=== PATIENT | male | born 1990 | race Caucasian/White ===

== ENCOUNTER 2018-07-24 20:14 | Emergency (ER) | payer SELFPAY ==
[~2018-07-24] VITALS: Ht 175.3 cm; Wt 70.1 kg
[~2018-07-24 20:14] MED LIST: IBUP-1561 PO
[2018-07-24 20:15] VITALS: BP 119/67; PULSE 59; RESP 19; Ht 175.3 cm; Wt 70.1 kg
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
[2018-07-30] MEDS ORDERED: IBUP-1542 PO (11:26)
== END 2018-07-24 23:47 | disposition left against medical advice (07) ==
LOC: FTE 20:14
DX: S99.922A Unspecified injury of left foot, initial encounter (principal); Y03.0XXA Assault by being hit or run over by motor vehicle, initial encounter
CPT/HCPCS: 99282

== ENCOUNTER 2018-12-01 22:11 | Emergency (ER) | payer OTHER ==
[~2018-12-01] VITALS: Ht 162.6 cm; Wt 68.1 kg
[~2018-12-01 22:11] MED LIST changes: +IBUP-1542 PO
[2018-12-01 22:18] VITALS: Ht 162.6 cm; Wt 68.1 kg
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
[2018-12-01] MEDS ORDERED: KETOROLAC 30 MG INJ IM STA (22:39)
[2018-12-02 00:25] VITALS: BP 125/72; PULSE 82; RESP 20
== END 2018-12-02 02:32 | disposition home or self-care (01) ==
LOC: E/R 22:11
DX: F10.10 Alcohol abuse, uncomplicated (principal)
CPT/HCPCS: 36415; 80053; 80307; 81003; 83690; 85025; 96372; 99284; J1885

== ENCOUNTER 2019-01-19 18:55 | Inpatient (IN) | payer MEDICAID, OTHER ==
[~2019-01-19] VITALS: Ht 167.6 cm; Wt 70.0 kg
[~2019-01-19 18:55] MED LIST changes: +DOCU-144 PO; +HYDR-3980 PO; +NALO4SPR NS; +OXYC-279 PO
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
[2019-01-19] MEDS ORDERED: ONDANSETRON 4 MG INJ IV ONE (19:30)
[2019-01-19] MEDS ORDERED: morphine 4 MG/ML VIAL IV ONE (19:30)
[2019-01-19] MEDS ORDERED: morphine 4 MG/ML VIAL IV STA (19:55)
[2019-01-19] MEDS ORDERED: HYDROmorphONE 0.5 MG/0.5 ML SYG IV STA ×2 (20:37→21:52)
[2019-01-19] MEDS ORDERED: ONDANSETRON 4 MG INJ IV STA (21:31)
[2019-01-19] MEDS ORDERED: KETAMINE HCL (50 MG/ML) 1ml syringe IV STA (21:31)
[2019-01-20] MEDS ORDERED: HYDROmorphONE 0.5 MG/0.5 ML SYG IV STA (00:28)
[2019-01-20] MEDS ORDERED: ONDANSETRON 4 MG INJ IV PRN (00:30)
[2019-01-20] MEDS ORDERED: ACETAMINOPHEN 325 MG TAB PO PRN ×2 (00:30→02:30)
[2019-01-20 02:00] VITALS: Ht 167.6 cm; Wt 70.0 kg
[2019-01-20] MEDS: morphine 2 MG INJ IV PRN ×2 (02:25→06:25)
[2019-01-20] MEDS ORDERED: HYDROCODONE/APAP (5/325) TAB PO PRN (02:30)
[2019-01-20] MEDS ORDERED: NACL 0.9% 3 ML SYG IV SCH (02:30)
[2019-01-20 02:34] VITALS: BP 134/80; PULSE 80; RESP 20
[2019-01-20] MEDS: HYDROCODONE/APAP (5/325) TAB PO PRN ×2 (03:22→09:33)
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
[2019-01-20] MEDS ORDERED: HYDROmorphONE 2 MG/ML SYG IV ONE (07:30)
[2019-01-20 08:09] VITALS: BP 125/80; PULSE 62; RESP 18
[2019-01-20] MEDS: ONDANSETRON 4 MG INJ IV PRN ×2 (08:41→15:11)
[2019-01-20] MEDS: HEPARIN 5,000 UNIT/1 ML VIAL SC SCH ×2 (09:34→20:27)
[2019-01-20] MEDS ORDERED: PROCHLORPERAZINE 5 MG TAB PO PRN (11:00)
[2019-01-20] MEDS: HYDROmorphONE 1 MG/ML SYG IV PRN ×3 (11:01→19:05)
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
[2019-01-20] MEDS: METHOCARBAMOL 500 MG TAB PO SCH ×2 (12:34→20:13)
--- NOTE | 2019-01-20 13:11 | PN ---
Date/Time of Note Date/Time of Note DATE: 01/20/19 TIME: 13:06 Assessment/Plan VTE Prophylaxis Risk score (from Ns)>0 risk: 2 SCD applied (from Ns): Yes Pharmacological prophylaxis: heparin Lines/Catheters IV [facility] Saline Lock Assessment/Plan Hospital Course Assessment and plan 1. Recent fall with left talus fracture. Patient seen by customer account executive. Tentative plan for surgical intervention on January 21, 2019 2. [address] intoxication. Will place on banana bag. On Librium taper. Ativan as needed for possible seizure. 3. Possible substance abuse: Cannabinoids/suspect opioids Cessation was advised Disposition plan. Continue with analgesics. Plan for surgical intervention for left Talus fracture. Discussed POC with Dr. Sloan Result Diagram: 01/20/19 0559 01/20/19 0559 Results 24hrs Laboratory Tests Test 01/19/19 19:10 01/19/19 21:53 01/20/19 05:59 White Blood Count 7.9 7.4 Red Blood Count 4.62 L 4.56 L Hemoglobin 14.2 13.9 L Hematocrit 40.3 L 41.2 L Mean Corpuscular Volume 87.2 90.4 Mean Corpuscular Hemoglobin 30.7 30.5 Mean Corpuscular Hemoglobin Concent 35.2 33.7 Red Cell Distribution Width 11.9 12.3 Platelet Count 202 190 Mean Platelet Volume 9.9 10.6 H Immature Granulocytes % 0.400 0.400 Neutrophils % 73.2 69.8 Lymphocytes % 18.8 18.4 Monocytes % 6.2 10.6 Eosinophils % 0.8 0.4 Basophils % 0.6 0.4 Nucleated Red Blood Cells % 0.0 0.0 Immature Granulocytes # 0.030 0.030 Neutrophils # 5.8 5.2 Lymphocytes # 1.5 1.4 Monocytes # 0.5 0.8 Eosinophils # 0.1 0.0 Basophils # 0.1 0.0 Nucleated Red Blood Cells # 0.0 0.0 Prothrombin Time 11.9 Prothrombin Time Ratio 0.9 INR International Normalized Ratio 0.87 Activated Partial Thromboplast Time 25.5 Sodium Level 142 140 Potassium Level 3.5 4.4 Chloride Level 105 105 Carbon Dioxide Level 25 28 Anion Gap 12 7 Blood Urea Nitrogen 10 9 Creatinine 1.01 0.94 Est Glomerular Filtrat Rate mL/min > 60 > 60 Glucose Level 91 92 Calcium Level 9.4 9.4 Ethyl Alcohol Level 77.0 H Urine Opiates Screen Positive Urine Barbiturates Negative Urine Amphetamines Screen Negative Urine Benzodiazepines Screen Negative Urine Cocaine Screen Negative Urine Cannabinoids Positive Phosphorus Level 4.7 Magnesium Level 2.1 Total Bilirubin 1.3 Direct Bilirubin 0.00 Indirect Bilirubin 1.3 H Aspartate Amino Transf (AST/SGOT) 32 Alanine Aminotransferase (ALT/SGPT) 39 Alkaline Phosphatase 72 Total Protein 7.3 Albumin 4.4 Globulin 2.90 Albumin/Globulin Ratio 1.51 Subjective 24 Hr Interval Summary Free Text/Dictation Patient reports pain on LLE. was seen together with customer account executive. denies any headache. With reported nausea/vomiting Exam/Review of Systems Exam Vitals Vital Signs Date Temp Pulse Resp B/P (MAP) Pulse Ox O2 O2 Flow FiO2 Time Delivery Rate 01/20/19 98.8 62 18 125/80 96 Room Air 08:09 (95) 01/19/19 2.0 22:08 Intake and Output 01/19/19 01/19/19 01/20/19 1515:00 23:00 07:00 IntakeIntake Total 450 ml OutputOutput Total 700 ml BalanceBalance -250 ml Constitutional: alert, oriented Psych: nl mood/affect Respiratory: clear to auscultation, normal air movement Cardiovascular: other (regular rate to tachycardic ) Gastrointestinal: soft, non-tender Musculoskeletal: swelling (LLE. pain on palpation ) Neurological: nl mental status, nl speech Skin: nl turgor Results Results 24hrs Laboratory Tests Test 01/19/19 19:10 01/19/19 21:53 01/20/19 05:59 White Blood Count 7.9 7.4 Red Blood Count 4.62 L 4.56 L Hemoglobin 14.2 13.9 L Hematocrit 40.3 L 41.2 L Mean Corpuscular Volume 87.2 90.4 Mean Corpuscular Hemoglobin 30.7 30.5 Mean Corpuscular Hemoglobin Concent 35.2 33.7 Red Cell Distribution Width 11.9 12.3 Platelet Count 202 190 Mean Platelet Volume 9.9 10.6 H Immature Granulocytes % 0.400 0.400 Neutrophils % 73.2 69.8 Lymphocytes % 18.8 18.4 Monocytes % 6.2 10.6 Eosinophils % 0.8 0.4 Basophils % 0.6 0.4 Nucleated Red Blood Cells % 0.0 0.0 Immature Granulocytes # 0.030 0.030 Neutrophils # 5.8 5.2 Lymphocytes # 1.5 1.4 Monocytes # 0.5 0.8 Eosinophils # 0.1 0.0 Basophils # 0.1 0.0 Nucleated Red Blood Cells # 0.0 0.0 Prothrombin Time 11.9 Prothrombin Time Ratio 0.9 INR International Normalized Ratio 0.87 Activated Partial Thromboplast Time 25.5 Sodium Level 142 140 Potassium Level 3.5 4.4 Chloride Level 105 105 Carbon Dioxide Level 25 28 Anion Gap 12 7 Blood Urea Nitrogen 10 9 Creatinine 1.01 0.94 Est Glomerular Filtrat Rate mL/min > 60 > 60 Glucose Level 91 92 Calcium Level 9.4 9.4 Ethyl Alcohol Level 77.0 H Urine Opiates Screen Positive Urine Barbiturates Negative Urine Amphetamines Screen Negative Urine Benzodiazepines Screen Negative Urine Cocaine Screen Negative Urine Cannabinoids Positive Phosphorus Level 4.7 Magnesium Level 2.1 Total Bilirubin 1.3 Direct Bilirubin 0.00 Indirect Bilirubin 1.3 H Aspartate Amino Transf (AST/SGOT) 32 Alanine Aminotransferase (ALT/SGPT) 39 Alkaline Phosphatase 72 Total Protein 7.3 Albumin 4.4 Globulin 2.90 Albumin/Globulin Ratio 1.51 Medications Medication Current Medications IV Flush (NS 3 ml) 3 ml PER PROTOCOL IV ; Start 01/20/19 at 02:30 Ondansetron HCl (Zofran Inj) 4 mg Q6H PRN IV NAUSEA/VOMITING Last administered on 01/20/19at 08:41; Admin Dose 4 MG; Start 01/20/19 at 02:30 Acetaminophen (Tylenol Tab) 650 mg Q6H PRN PO .PAIN 1-3 OR TEMP; Start 01/20/19 at 02:30 Hydromorphone HCl (Dilaudid) 1 mg Q4H PRN IV SEVERE PAIN LEVEL 7-10 Last administered on 01/20/19at 11:01; Admin Dose 1 MG; Start 01/20/19 at 07:00 Heparin Sodium (Porcine) (Heparin (5000 Units/1ml)) 5,000 unit BID SC Last administered on 01/20/19at 09:34; Admin Dose 5,000 UNIT; Start 01/20/19 at 09:00 Prochlorperazine (Compazine) 5 mg TID PRN PO nausea Last administered on 01/20/19at 11:02; Admin Dose 5 MG; Start 01/20/19 at 11:00 Methocarbamol (Robaxin) 500 mg TID PO Last administered on 01/20/19at 12:34; Admin Dose 500 MG; Start 01/20/19 at 13:00 Ketorolac Tromethamine (Toradol) 30 mg Q6H PRN IV PAIN LEVEL 1-3; Start 01/20/19 at 11:00; Stop 01/23/19 at 10:59 NIKKIE HUIZAR NP Jan 20, 2019 13:11
[2019-01-20] MEDS ORDERED: LORAZEPAM 2 MG INJ IV PRN (13:30)
[2019-01-20] MEDS: KETOROLAC 30 MG INJ IV PRN ×2 (13:34→21:01)
[2019-01-20 14:00] VITALS: BP 137/86; PULSE 60; RESP 18
[2019-01-20] MEDS: MULTIVITAMINS 10 ML, THIAMINE 100 MG, FOLIC ACID 1 MG in SOD CHLORIDE 0.9% 1,000 ML IVPB SCH (15:04)
[2019-01-20 20:08] VITALS: BP 129/83; PULSE 58; RESP 18
[2019-01-20] MEDS: CHLORDIAZEPOXIDE 25 MG CAP PO SCH (20:13)
[2019-01-21] VITALS (15 sets, daily range): BP systolic 112–136; BP diastolic 64–86; PULSE 60–74; RESP 9–19
[2019-01-21] MEDS: HYDROmorphONE 1 MG/ML SYG IV PRN ×4 (06:04→20:52)
[2019-01-21] MEDS: KETOROLAC 30 MG INJ IV PRN ×2 (06:52→18:52)
[2019-01-21] MEDS ORDERED: POLYMYXIN/BACITRACIN 1L IRRIG ONE (07:18)
--- NOTE | 2019-01-21 07:27 | HPN ---
Date/Time of Note Date/Time of Note DATE: 01/21/19 TIME: 07:27 Interval H&P Admission Note Pt. seen H&P reviewed: No system changes HEAVENLY CH DPM Jan 21, 2019 07:27
--- NOTE | 2019-01-21 07:39 | PREAC ---
Date/Time of Note Date/Time of Note DATE: 01/21/19 TIME: 07:37 Anesthesia Eval and Record Evaluation Time Pre-Procedure Interview DATE: 01/21/19 TIME: 07:37 Age 28 Sex male NPO: 8 hrs Preoperative diagnosis Lt ankle fracture Planned procedure Lt ankle ORIF Past Medical History Past Medical History: None Surgery & Anesthesia Issues No known issue Meds Anticoagulation: No Beta Fanny within 24 hr: No Reason Beta Fanny not given: Pt. not on B-Fanny Active Scripts Ibuprofen* (Motrin*) 600 Mg Tab, 600 MG PO Q6H PRN for PAIN AND/OR INFLAMMATION, #30 TAB Prov:DAVID FRANCIS MD 07/30/18 Ibuprofen* (Motrin*) 400 Mg Tab, 400 MG PO Q8, #15 TAB Prov:CLAY XIAO MD 07/24/18 Current Medications IV Flush (NS 3 ml) 3 ml PER PROTOCOL IV ; Start 01/20/19 at 02:30 Ondansetron HCl (Zofran Inj) 4 mg Q6H PRN IV NAUSEA/VOMITING Last administered on 01/20/19at 15:11; Admin Dose 4 MG; Start 01/20/19 at 02:30 Acetaminophen (Tylenol Tab) 650 mg Q6H PRN PO .PAIN 1-3 OR TEMP; Start 01/20/19 at 02:30 Hydromorphone HCl (Dilaudid) 1 mg Q4H PRN IV SEVERE PAIN LEVEL 7-10 Last administered on 01/21/19at 06:04; Admin Dose 1 MG; Start 01/20/19 at 07:00 Heparin Sodium (Porcine) (Heparin (5000 Units/1ml)) 5,000 unit BID SC Last administered on 01/20/19at 09:34; Admin Dose 5,000 UNIT; Start 01/20/19 at 09:00 Prochlorperazine (Compazine) 5 mg TID PRN PO nausea Last administered on 01/20/19at 11:02; Admin Dose 5 MG; Start 01/20/19 at 11:00 Methocarbamol (Robaxin) 500 mg TID PO Last administered on 01/20/19at 20:13; Admin Dose 500 MG; Start 01/20/19 at 13:00 Ketorolac Tromethamine (Toradol) 30 mg Q6H PRN IV PAIN LEVEL 1-3 Last administered on 01/21/19at 06:52; Admin Dose 30 MG; Start 01/20/19 at 11:00; Stop 01/23/19 at 10:59 Chlordiazepoxide (Librium) 50 mg TID PO Last administered on 01/20/19at 20:13; Admin Dose 50 MG; Start 01/20/19 at 21:00 Lorazepam (Ativan) 1 mg Q1H PRN IV ANXIETY; Start 01/20/19 at 13:30 Multivitamins 10 ml/Thiamine HCl 100 mg/Folic Acid 1 mg/Sodium Chloride 1,011.2 ml @ 125 mls/ hr DAILY@09 IVPB Last administered on 01/20/19at 15:04; Admin Dose 125 MLS/HR; Start 01/20/19 at 15:00 Meds reviewed: Yes Allergies Coded Allergies: Penicillins (Verified Allergy, Intermediate, UNKNOWN, 07/30/18) Allergies Reviewed: Yes Labs/Studies Labs Reviewed: Reviewed by anesthesiologist Result Diagram: 01/21/19 0433 01/21/19 0433 Laboratory Tests 01/21/19 04:33 test: N/A Studies: ECG Pre-procedure Exam Last vitals Vital Signs Date Temp Pulse Resp B/P (MAP) Pulse Ox O2 O2 Flow FiO2 Time Delivery Rate 01/21/19 98.5 60 18 126/79 99 02:05 (95) 01/20/19 Room Air 14:00 01/19/19 2.0 22:08 Airway: Adequate mouth opening, Adequate thyromental dist Mallampati: Mallampati II Teeth: Normal Lung: Normal Heart: Normal ASA Physical Status ASA physical status: 2 Emergency: E Planned Anesthetic General/MAC: LMA Planned Pain Management Single shot nerve block, Cont. Nerve Block, Parenteral pain med Pre-operative Attestations Prior to commencing anesthesia and surgery, the patient was re-evaluated, there was verification of: *The patient's identity *The results of appropriate recent lab work and preoperative vital signs *The above evaluation not changing prior to induction *Anesthetic plan, risk benefits, alternative and complications discussed with patient/family; questions answered; patient/family understands, accepts and wishes to proceed. CHANO ARGUETA MD Jan 21, 2019 07:39
[2019-01-21] MEDS ORDERED: MIDAZOLAM 1 MG/ML 2 ML INJ ONE (07:47)
[2019-01-21] MEDS ORDERED: ROPIVACAINE 0.5 % 30 ML VIAL ONE (08:01)
[2019-01-21] MEDS: HEPARIN 5,000 UNIT/1 ML VIAL SC SCH ×2 (09:00→20:54)
[2019-01-21] MEDS: METHOCARBAMOL 500 MG TAB PO SCH ×3 (09:00→20:53)
[2019-01-21] MEDS: CHLORDIAZEPOXIDE 25 MG CAP PO SCH ×3 (09:00→20:53)
[2019-01-21] MEDS ORDERED: ROCURONIUM 50 MG INJ ONE (10:10)
[2019-01-21] MEDS ORDERED: CEFAZOLIN 1 GM INJ ONE (10:10)
[2019-01-21] MEDS ORDERED: PROPOFOL 20 ML ONE (10:10)
[2019-01-21] MEDS ORDERED: LIDOCAINE 2% (SDV) 5 ML INJ ONE (10:10)
[2019-01-21] MEDS ORDERED: ONDANSETRON 4 MG INJ ONE (10:11)
[2019-01-21] MEDS ORDERED: DIPHENHYDRAMINE 50 MG INJ IV PRN (10:30)
[2019-01-21] MEDS ORDERED: HYDROmorphONE 1 MG/5 ML IV SYRINGE IV PRN (10:30)
[2019-01-21] MEDS ORDERED: FENTAnyl 50 MCG/ML VIAL IV PRN (10:30)
[2019-01-21] MEDS ORDERED: NALOXONE (0.4 MG/ML) INJ IV PRN (10:30)
[2019-01-21] MEDS ORDERED: MEPERIDINE 25 MG INJ IV PRN (10:30)
[2019-01-21] MEDS ORDERED: ONDANSETRON 4 MG INJ IV PRN (10:30)
[2019-01-21] MEDS ORDERED: METOCLOPRAMIDE 10 MG INJ IV PRN (10:30)
--- NOTE | 2019-01-21 10:31 | PAC ---
Date/Time of Note Date/Time of Note DATE: 01/21/19 TIME: 10:30 Post-Anesthesia Notes Post-Anesthesia Note Last documented vital signs Vital Signs Date Temp Pulse Resp B/P (MAP) Pulse Ox O2 O2 Flow FiO2 Time Delivery Rate 01/21/19 98.5 60 18 126/79 99 02:05 (95) 01/20/19 Room Air 14:00 01/19/19 2.0 22:08 Activity: WNL Respiratory function: WNL Cardiovascular function: WNL Mental status: Baseline Pain reasonably controlled: Yes Hydration appropriate: Yes Nausea/Vomiting absent: Yes Comments BP:112/56, P:88, Spo2:100%, T:98,9 CHANO ARGUETA MD Jan 21, 2019 10:30
[2019-01-21] MEDS: HYDROmorphONE 1 MG/5 ML IV SYRINGE IV PRN ×2 (10:43→11:10)
--- NOTE | 2019-01-21 10:45 | OPR ---
Date/Time of Note Date/Time of Note DATE: 01/21/19 TIME: 10:44 Operative Report Preoperative Diagnosis Left talus closed comminuted fracture LLE edema Pain in limb LLE Postoperative Diagnosis Left talus closed comminuted fracture LLE edema Pain in limb LLE Operation/Procedure Performed Closed reduction of left talus fracture Arthrodiastasis left ankle and subtalar joint Application of multiplanar ring external fixator Surgeon see signature line Systems Developer Sandeep Horn DPM Anesthesia Type: general Estimated Blood Loss: minimal Transfusion none Specimen none Grafts/Implants none Complications none Indications 28 y/o M patient who presented with a closed comminuted talar fracture of the left lower extremity. Patient had felt immediate pain and was unable to bear weight to the extremity. Patient then admitted for pain control and management of fracture. Discussed severity of comminution with patient and discussed application of multiplane external fixator with joint distraction to stabilize the fracture fragments. Patient was amenable to surgery. Addressed all of the patient's questions and concerns. No promises or guarantees were given. Procedure Description Patient was brought into the OR and placed in the supine position. Preoperatively the anesthesia team provided a popliteal and saphenous block of the left lower extremity. The left lower extremity was then scrubbed, prepped, and draped in the usual aseptic manner. A formal time out was conducted. Attention was directed to the left lower extremity. There was no fracture blisters appreciated, no significant ecchymosis, no open lesions, and non pitting edema was present to the hind foot. The hindfoot was able to be placed in rectus alignment. Upon inspection of passive ROM there was crepitus noted to the medial and posterior medial aspect the ankle and subtalar joint. A multiplanar ring external fixator was constructed to accommodate to the patient's anatomy. Using smooth wires multiple points of fixation was placed in the tibial ring blocks and in the proximal and distal aspects of the foot plate. No wires placed through the talus as to not further disrupt the comminution of the talus fracture. Care was taken to avoid vital structures and wires were placed in anatomic safe zones for each site. The threaded rods were loosened and arthrodiastasis was performed of the ankle joint and subtalar joint. Adequate distraction was achieved with no tension or damage to the soft tissue integrity. Radiographic images were obtained and there was noted approximately 1-2cm distraction to the left lower extremity ankle joint and subtalar joint. There was adequate decompression of the joints and the fracture fragments appeared to remain intact and consolidated with no signs of worsening of the fracture fragments. Dry sterile dressings were applied to the patient and was transferred to the PACU with vital signs stable and neurovascular status intact. HEAVENLY CH DPM Jan 21, 2019 10:45
[2019-01-21] MEDS: MULTIVITAMINS 10 ML, THIAMINE 100 MG, FOLIC ACID 1 MG in SOD CHLORIDE 0.9% 1,000 ML IVPB SCH (12:02)
[2019-01-21] MEDS: CEFAZOLIN 1 GM/50 ML (PMX) 50 ML IVPB SCH ×2 (13:41→21:00)
--- NOTE | 2019-01-21 13:54 | PN ---
Date/Time of Note Date/Time of Note DATE: 01/21/19 TIME: 13:48 Assessment/Plan VTE Prophylaxis Risk score (from Ns)>0 risk: 2 SCD applied (from Ns): Yes Pharmacological prophylaxis: heparin Lines/Catheters IV Catheter Type (from Nrsg): Saline Lock Urinary Cath still in place: No Assessment/Plan Hospital Course Assessment and plan 1. Recent fall with left talus fracture. Patient seen by outbound sales consultant. Patient status post closed reduction of left talus fracture and arthro-diastasis left ankle and subtalar joint and application of multiplanar ring external fixator 01.21.19 continue analgesics. Discussed with podiatry; patient may need snf placement. will f/u porter sample case . 2. Alcohol intoxication. banana bag. On Librium taper. Ativan as needed for possible seizure. 3. Possible substance abuse: Cannabinoids/suspect opioids Cessation was advised Disposition plan. Continue with analgesics. Follow-up with porter sample case for outpatient transition planning. Monitor in-house for now. Discussed POC with Dr. Sloan Result Diagram: 01/21/19 0433 01/21/19 0433 Results 24hrs Laboratory Tests Test 01/21/19 04:33 White Blood Count 5.4 # Red Blood Count 4.69 L Hemoglobin 14.2 Hematocrit 42.4 Mean Corpuscular Volume 90.4 Mean Corpuscular Hemoglobin 30.3 Mean Corpuscular Hemoglobin Concent 33.5 Red Cell Distribution Width 12.3 Platelet Count 186 Mean Platelet Volume 10.6 H Immature Granulocytes % 0.400 Neutrophils % 63.4 Lymphocytes % 22.0 Monocytes % 12.1 H Eosinophils % 1.5 Basophils % 0.6 Nucleated Red Blood Cells % 0.0 Immature Granulocytes # 0.020 Neutrophils # 3.4 Lymphocytes # 1.2 Monocytes # 0.7 Eosinophils # 0.1 Basophils # 0.0 Nucleated Red Blood Cells # 0.0 Sodium Level 138 Potassium Level 3.9 Chloride Level 103 Carbon Dioxide Level 27 Anion Gap 8 Blood Urea Nitrogen 10 Creatinine 0.89 Est Glomerular Filtrat Rate mL/min > 60 Glucose Level 89 Calcium Level 9.4 Phosphorus Level 4.6 Magnesium Level 2.1 Subjective 24 Hr Interval Summary Free Text/Dictation still with LLE pain . is s/p surgical intervention Exam/Review of Systems Exam Vitals Vital Signs Date Temp Pulse Resp B/P (MAP) Pulse Ox O2 O2 Flow FiO2 Time Delivery Rate 01/21/19 98.4 69 17 119/78 99 Room Air 12:08 (92) 01/21/19 3.0 11:13 Intake and Output 01/20/19 01/20/19 01/21/19 1515:00 23:00 07:00 IntakeIntake Total 1120 ml 1750 ml 761.2 ml OutputOutput Total 1900 ml 1600 ml 200 ml BalanceBalance -780 ml 150 ml 561.2 ml Exam Constitutional: alert, oriented Psych: nl mood/affect Respiratory: clear to auscultation, normal air movement Cardiovascular: other (regular rate to tachycardic ) Gastrointestinal: soft, non-tender Musculoskeletal: s/p surgical intervention with dressing LLE Neurological: nl mental status, nl speech Skin: nl turgor Results Results 24hrs Laboratory Tests Test 01/21/19 04:33 White Blood Count 5.4 # Red Blood Count 4.69 L Hemoglobin 14.2 Hematocrit 42.4 Mean Corpuscular Volume 90.4 Mean Corpuscular Hemoglobin 30.3 Mean Corpuscular Hemoglobin Concent 33.5 Red Cell Distribution Width 12.3 Platelet Count 186 Mean Platelet Volume 10.6 H Immature Granulocytes % 0.400 Neutrophils % 63.4 Lymphocytes % 22.0 Monocytes % 12.1 H Eosinophils % 1.5 Basophils % 0.6 Nucleated Red Blood Cells % 0.0 Immature Granulocytes # 0.020 Neutrophils # 3.4 Lymphocytes # 1.2 Monocytes # 0.7 Eosinophils # 0.1 Basophils # 0.0 Nucleated Red Blood Cells # 0.0 Sodium Level 138 Potassium Level 3.9 Chloride Level 103 Carbon Dioxide Level 27 Anion Gap 8 Blood Urea Nitrogen 10 Creatinine 0.89 Est Glomerular Filtrat Rate mL/min > 60 Glucose Level 89 Calcium Level 9.4 Phosphorus Level 4.6 Magnesium Level 2.1 Medications Medication Current Medications IV Flush (NS 3 ml) 3 ml PER PROTOCOL IV ; Start 01/20/19 at 02:30 Ondansetron HCl (Zofran Inj) 4 mg Q6H PRN IV NAUSEA/VOMITING Last administered on 01/20/19at 15:11; Admin Dose 4 MG; Start 01/20/19 at 02:30 Acetaminophen (Tylenol Tab) 650 mg Q6H PRN PO .PAIN 1-3 OR TEMP; Start 01/20/19 at 02:30 Hydromorphone HCl (Dilaudid) 1 mg Q4H PRN IV SEVERE PAIN LEVEL 7-10 Last administered on 01/21/19 12:39; Admin Dose 1 MG; Start 01/20/19 at 07:00 Heparin Sodium (Porcine) (Heparin (5000 Units/1ml)) 5,000 unit BID SC Last administered on 01/20/19 09:34; Admin Dose 5,000 UNIT; Start 01/20/19 at 09:00 Prochlorperazine (Compazine) 5 mg TID PRN PO nausea Last administered on 01/20/19 11:02; Admin Dose 5 MG; Start 01/20/19 at 11:00 Methocarbamol (Robaxin) 500 mg TID PO Last administered on 01/21/19 12:39; Admin Dose 500 MG; Start 01/20/19 at 13:00 Ketorolac Tromethamine (Toradol) 30 mg Q6H PRN IV PAIN LEVEL 1-3 Last administered on 01/21/19 06:52; Admin Dose 30 MG; Start 01/20/19 at 11:00; Stop 01/23/19 at 10:59 Chlordiazepoxide (Librium) 50 mg TID PO Last administered on 01/21/19 12:39; Admin Dose 50 MG; Start 01/20/19 at 21:00 Lorazepam (Ativan) 1 mg Q1H PRN IV ANXIETY; Start 01/20/19 at 13:30 Multivitamins 10 ml/Thiamine HCl 100 mg/Folic Acid 1 mg/Sodium Chloride 1,011.2 ml @ 125 mls/ hr DAILY@09 IVPB Last administered on 01/21/19 12:02; Admin Dose 125 MLS/HR; Start 01/20/19 at 15:00 Hydromorphone HCl (Dilaudid) 0.2 mg PACU PRN IV MILD PAIN 1-3; Start 01/21/19 at 10:30; Stop 01/21/19 at 16:00 Hydromorphone HCl (Dilaudid) 0.4 mg PACU PRN IV MOD PAIN 4-6 Last administered on 01/21/19 11:10; Admin Dose 0.4 MG; Start 01/21/19 at 10:30; Stop 01/21/19 at 16:00 Fentanyl (Sublimaze) 25 mcg PACU ORDER PRN IV MILD PAIN 1-3; Start 01/21/19 at 10:30; Stop 01/21/19 at 16:00 Ondansetron HCl (Zofran Inj) 4 mg PACU ORDER PRN IV NAUSEA/VOMITING Last administered on 01/21/19at 12:01; Admin Dose 4 MG; Start 01/21/19 at 10:30; Stop 01/21/19 at 16:00 Metoclopramide HCl (Reglan) 10 mg PACU ORDER PRN IV NAUSEA/VOMITING; Start 01/21/19 at 10:30; Stop 01/21/19 at 16:00 Meperidine HCl (Demerol) 25 mg PACU ORDER PRN IV .RIGORS Last administered on 01/21/19at 11:31; Admin Dose 25 MG; Start 01/21/19 at 10:30; Stop 01/21/19 at 16:00 Diphenhydramine HCl (Benadryl) 25 mg PACU ORDER PRN IV .PRURITUS; Start 01/21/19 at 10:30; Stop 01/21/19 at 16:00 Naloxone HCl (Narcan) 0.2 mg Q2M PRN IV .RESP RATE; Start 01/21/19 at 10:30 Cefazolin Sodium 50 ml @ 100 mls/hr Q8 IVPB Last administered on 01/21/19at 13:41; Admin Dose 100 MLS/HR; Start 01/21/19 at 14:00; Stop 01/22/19 at 06:29 NIKKIE HUIZAR NP Jan 21, 2019 13:54
[2019-01-21] MEDS ORDERED: HYDROCODONE/APAP (5/325) TAB PO PRN (14:00)
[2019-01-21] MEDS: ONDANSETRON 4 MG INJ IV PRN (16:53)
[2019-01-22] MEDS: HYDROmorphONE 1 MG/ML SYG IV PRN ×7 (00:52→22:49)
[2019-01-22] MEDS: KETOROLAC 30 MG INJ IV PRN ×3 (00:52→15:03)
[2019-01-22 02:00] VITALS: BP 102/61; PULSE 63; RESP 18
[2019-01-22] MEDS: CEFAZOLIN 1 GM/50 ML (PMX) 50 ML IVPB SCH (05:01)
[2019-01-22 08:00] VITALS: BP 111/77; PULSE 59; RESP 20
[2019-01-22] MEDS: METHOCARBAMOL 500 MG TAB PO SCH ×3 (08:12→20:40)
[2019-01-22] MEDS: HYDROCODONE/APAP (5/325) TAB PO PRN ×2 (08:12→20:39)
[2019-01-22] MEDS: CHLORDIAZEPOXIDE 25 MG CAP PO SCH ×3 (08:12→20:40)
[2019-01-22] MEDS: HEPARIN 5,000 UNIT/1 ML VIAL SC SCH (08:13)
[2019-01-22] MEDS: MULTIVITAMINS 10 ML, THIAMINE 100 MG, FOLIC ACID 1 MG in SOD CHLORIDE 0.9% 1,000 ML IVPB SCH (09:19)
[2019-01-22] MEDS ORDERED: KETOROLAC 30 MG INJ IV STA (10:11)
[2019-01-22] MEDS: ASCORBIC ACID 500 MG TAB PO SCH (10:23)
--- NOTE | 2019-01-22 11:27 | CONS ---
Assessment/Plan Assessment/Plan Assessment/Plan (Daily) Left talus closed comminuted fracture LLE edema Pain in limb LLE Plan Continue with pain control. Elevate left lower extremity and ice behind the knee. Dressings were changed and pin site care. Keep dressings clean dry and intact. Patient completed prophylactic IV abx. Patient will need to be placed on temporary disability and would benefit from SNF placement appreciate case management recommendations. Consultation Date/Type/Reason Admit Date/Time Jan 20, 2019 at 00:30 Initial Consult Date Date/Time of Note DATE: 01/22/19 TIME: 11:24 24 HR Interval Summary Free Text/Dictation No acute events overnight. Exam/Review of Systems Exam Vitals Vital Signs Date Temp Pulse Resp B/P (MAP) Pulse Ox O2 O2 Flow FiO2 Time Delivery Rate 01/22/19 97.7 59 20 111/77 100 08:00 (88) 01/21/19 Room Air 14:00 01/21/19 3.0 11:13 Intake and Output 01/21/19 01/21/19 01/22/19 1515:00 23:00 07:00 IntakeIntake Total 1650 ml 1661.2 ml 50 ml OutputOutput Total 10 ml 800 ml 900 ml BalanceBalance 1640 ml 861.2 ml -850 ml Exam Left lower extremity external fixator in place and in alignment No sign of hardware failure or breaks Pin sites appear clean dry and intact There is non pitting edema appreciated to the left lateral ankle area Serosanguinous drainage noted to lateral midfoot pin site No proximal streaking, no foul odor, no purulence noted Results Result Diagram: 01/22/19 0710 01/22/19 0710 Results 24hrs Laboratory Tests Test 01/22/19 07:10 White Blood Count 4.6 L Red Blood Count 3.75 #L Hemoglobin 11.7 L Hematocrit 34.4 L Mean Corpuscular Volume 91.7 Mean Corpuscular Hemoglobin 31.2 Mean Corpuscular Hemoglobin Concent 34.0 Red Cell Distribution Width 11.9 Platelet Count 167 Mean Platelet Volume 10.6 H Immature Granulocytes % 0.200 Neutrophils % 62.5 Lymphocytes % 24.1 Monocytes % 9.8 Eosinophils % 3.0 Basophils % 0.4 Nucleated Red Blood Cells % 0.0 Immature Granulocytes # 0.010 Neutrophils # 2.9 Lymphocytes # 1.1 Monocytes # 0.5 Eosinophils # 0.1 Basophils # 0.0 Nucleated Red Blood Cells # 0.0 Sodium Level 140 Potassium Level 4.1 Chloride Level 107 Carbon Dioxide Level 29 Anion Gap 4 L Blood Urea Nitrogen 10 Creatinine 0.95 Est Glomerular Filtrat Rate mL/min > 60 Glucose Level 102 Calcium Level 8.4 Medications Medication Current Medications IV Flush (NS 3 ml) 3 ml PER PROTOCOL IV ; Start 01/20/19 at 02:30 Ondansetron HCl (Zofran Inj) 4 mg Q6H PRN IV NAUSEA/VOMITING Last administered on 01/21/19 16:53; Admin Dose 4 MG; Start 01/20/19 at 02:30 Acetaminophen (Tylenol Tab) 650 mg Q6H PRN PO .PAIN 1-3 OR TEMP; Start 01/20/19 at 02:30 Hydromorphone HCl (Dilaudid) 1 mg Q4H PRN IV SEVERE PAIN LEVEL 7-10 Last administered on 01/22/19 09:19; Admin Dose 1 MG; Start 01/20/19 at 07:00 Heparin Sodium (Porcine) (Heparin (5000 Units/1ml)) 5,000 unit BID SC Last administered on 01/22/19 08:13; Admin Dose 5,000 UNIT; Start 01/20/19 at 09:00 Prochlorperazine (Compazine) 5 mg TID PRN PO nausea Last administered on 01/20/19 11:02; Admin Dose 5 MG; Start 01/20/19 at 11:00 Methocarbamol (Robaxin) 500 mg TID PO Last administered on 01/22/19 08:12; Admin Dose 500 MG; Start 01/20/19 at 13:00 Ketorolac Tromethamine (Toradol) 30 mg Q6H PRN IV PAIN LEVEL 1-3 Last administered on 01/22/19 06:58; Admin Dose 30 MG; Start 01/20/19 at 11:00; Stop 01/23/19 at 10:59 Chlordiazepoxide (Librium) 50 mg TID PO Last administered on 01/22/19 08:12; Admin Dose 50 MG; Start 01/20/19 at 21:00 Lorazepam (Ativan) 1 mg Q1H PRN IV ANXIETY; Start 01/20/19 at 13:30 Multivitamins 10 ml/Thiamine HCl 100 mg/Folic Acid 1 mg/Sodium Chloride 1,011.2 ml @ 125 mls/ hr DAILY@09 IVPB Last administered on 01/22/19at 09:19; Admin Dose 125 MLS/HR; Start 01/20/19 at 15:00 Naloxone HCl (Narcan) 0.2 mg Q2M PRN IV .RESP RATE; Start 01/21/19 at 10:30 Acetaminophen/ Hydrocodone Bitart ([place] (5/325)) 1 tab Q4H PRN PO MODERATE PAIN LEVEL 4-6; Start 01/21/19 at 14:00 Acetaminophen/ Hydrocodone Bitart ([place] (5/325)) 2 tab Q4H PRN PO MODERATE PAIN LEVEL 4-6 Last administered on 01/22/19at 08:12; Admin Dose 2 TAB; Start 01/21/19 at 14:00 Ascorbic Acid (Vitamin C) 500 mg DAILY PO Last administered on 01/22/19at 10:23; Admin Dose 500 MG; Start 01/22/19 at 10:00 HEAVENLY CH DPM Jan 22, 2019 11:27
[2019-01-22 14:08] VITALS: BP 106/69; PULSE 71; RESP 16
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
[2019-01-22 20:20] VITALS: BP 127/70; PULSE 62; RESP 18
[2019-01-23] MEDS: HYDROmorphONE 1 MG/ML SYG IV PRN ×4 (00:47→09:34)
[2019-01-23 02:25] VITALS: BP 120/73; PULSE 72; RESP 18
[2019-01-23] MEDS: KETOROLAC 30 MG INJ IV PRN (04:01)
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
[2019-01-23 08:00] VITALS: BP 135/87; PULSE 69; RESP 17
[2019-01-23] MEDS: HYDROCODONE/APAP (5/325) TAB PO PRN (08:33)
[2019-01-23] MEDS: ASCORBIC ACID 500 MG TAB PO SCH (08:56)
[2019-01-23] MEDS: CHLORDIAZEPOXIDE 25 MG CAP PO SCH ×3 (08:56→20:32)
[2019-01-23] MEDS: METHOCARBAMOL 500 MG TAB PO SCH (08:56)
[2019-01-23] MEDS: ENOXAPARIN 40 MG/0.4 ML SYG SC SCH (08:57)
[2019-01-23] MEDS: THIAMINE 100 MG TAB PO SCH (08:57)
[2019-01-23] MEDS: MULTIVITAMINS 10 ML, THIAMINE 100 MG, FOLIC ACID 1 MG in SOD CHLORIDE 0.9% 1,000 ML IVPB SCH (09:29)
[2019-01-23] MEDS ORDERED: LORAZEPAM 2 MG INJ IV PRN (10:00)
--- NOTE | 2019-01-23 10:16 | CONS ---
Assessment/Plan Assessment/Plan Assessment/Plan (Daily) Left ankle fracture Pain secondary to ORIF left ankle History of excessive alcohol use Past medical history of crystal methamphetamine and cocaine abuse Poor historian Unfortunate I believe we have to maintain this patient on the lower side insofar his pain control medications. He is negotiating with me for higher doses of opioids in spite of the fact that he has had a past history of illicit drug use. This can be a difficult situation as his history is somewhat suspect as to last time he used illicit drugs therefore I strongly recommend that we try and get him off of IV opioids and switch to p.o. opioids even if he vociferously complains. Will try and control his pain with low doses of opioids orally and gabapentin. Consultation Date/Type/Reason Admit Date/Time Jan 20, 2019 at 00:30 Date/Time of Note DATE: 01/23/19 TIME: 10:08 Hx of Present Illness 28-year-old male who is postop who took a mechanical fall resulting into comminuted left talus fracture. Patient is not extremely straightforward with history of present illness. Complaining of extreme pain in his left ankle at this time states he cannot sleep at night currently being treated with a combination of [place] and IV Dilaudid however the time I am examining him patient is very lethargic and difficult to stay aroused during my questioning describes his pain is 10/10. Requesting higher doses of IV pain control medications and/or at least not lowering the dose. States he needs to have more pain control medication at night because every time he moves he has sharp left ankle pain. Denies nausea vomiting sweating fatigue he is definitely lethargic at this time and difficult to arouse. Still difficult to get a clear story from him except that he states that he drinks he has a past medical history of using illicit drugs including cocaine and methamphetamine but denies heroin he is attempting to negotiate for more pain control medications from me in spite of the fact that he is mumbling his words I am constantly having to stimulate him to answer my questions and he is irritable. Constitutional: no complaints, improved Eyes: no complaints ENT: no complaints Respiratory: no complaints Cardiovascular: no complaints Gastrointestinal: no complaints Genitourinary: no complaints Musculoskeletal: no complaints, other (Refer to history of present illness) Skin: no complaints Neurologic: no complaints Endocrine: no complaints Lymphatic: no complaints Psychological: no complaints, nl mood/affect Immunologic: no complaints Past Medical History Medical History: no pertinent history Home Meds Active Scripts Ibuprofen* (Motrin*) 600 Mg Tab, 600 MG PO Q6H PRN for PAIN AND/OR INFLAMMATION, #30 TAB Prov:DAVID FRANCIS MD 07/30/18 Ibuprofen* (Motrin*) 400 Mg Tab, 400 MG PO Q8, #15 TAB Prov:CLAY XIAO MD 07/24/18 Medications Current Medications IV Flush (NS 3 ml) 3 ml PER PROTOCOL IV ; Start 01/20/19 at 02:30 Ondansetron HCl (Zofran Inj) 4 mg Q6H PRN IV NAUSEA/VOMITING Last administered on 01/21/19at 16:53; Admin Dose 4 MG; Start 01/20/19 at 02:30 Acetaminophen (Tylenol Tab) 650 mg Q6H PRN PO .PAIN 1-3 OR TEMP; Start 01/20/19 at 02:30 Prochlorperazine (Compazine) 5 mg TID PRN PO nausea Last administered on 01/20/19at 11:02; Admin Dose 5 MG; Start 01/20/19 at 11:00 Methocarbamol (Robaxin) 500 mg TID PO Last administered on 01/23/19at 08:56; Admin Dose 500 MG; Start 01/20/19 at 13:00 Ketorolac Tromethamine (Toradol) 30 mg Q6H PRN IV PAIN LEVEL 1-3 Last administered on 01/23/19at 04:01; Admin Dose 30 MG; Start 01/20/19 at 11:00; Stop 01/23/19 at 10:59 Lorazepam (Ativan) 1 mg Q1H PRN IV ANXIETY; Start 01/20/19 at 13:30 Multivitamins 10 ml/Thiamine HCl 100 mg/Folic Acid 1 mg/Sodium Chloride 1,011.2 ml @ 125 mls/ hr DAILY@09 IVPB Last administered on 01/23/19at 09:29; Admin Dose 125 MLS/HR; Start 01/20/19 at 15:00 Naloxone HCl (Narcan) 0.2 mg Q2M PRN IV .RESP RATE; Start 01/21/19 at 10:30 Acetaminophen/ Hydrocodone Bitart ([place] (5/325)) 1 tab Q4H PRN PO MODERATE PAIN LEVEL 4-6; Start 01/21/19 at 14:00 Acetaminophen/ Hydrocodone Bitart ([place] (5/325)) 2 tab Q4H PRN PO MODERATE PAIN LEVEL 4-6 Last administered on 01/23/19at 08:33; Admin Dose 2 TAB; Start 01/21/19 at 14:00 Ascorbic Acid (Vitamin C) 500 mg DAILY PO Last administered on 01/23/19at 08:56; Admin Dose 500 MG; Start 01/22/19 at 10:00 Enoxaparin Sodium (Lovenox) 40 mg DAILY SC Last administered on 01/23/19at 08:57; Admin Dose 40 MG; Start 01/23/19 at 09:00 Thiamine HCl (Vitamin B1) 100 mg DAILY PO Last administered on 01/23/19at 08:57; Admin Dose 100 MG; Start 01/23/19 at 09:00 Chlordiazepoxide (Librium) 25 mg TID PO Last administered on 01/23/19at 08:56; Admin Dose 25 MG; Start 01/22/19 at 21:00 Hydromorphone HCl (Dilaudid) 1 mg Q3H PRN IV SEVERE PAIN LEVEL 7-10 Last administered on 01/23/19at 09:34; Admin Dose 1 MG; Start 01/23/19 at 03:00 Allergies: Coded Allergies: Penicillins (Verified Allergy, Intermediate, UNKNOWN, 07/30/18) Past Surgical History Past Surgical Hx: other (Unknown patient is a poor historian) Social History Alcohol Use: other Smoking Status: Current some day smoker Drug Use: marijuana, other ( past medical history of cocaine and methamphetamine) Exam/Review of Systems Exam Vitals Vital Signs Date Temp Pulse Resp B/P (MAP) Pulse Ox O2 O2 Flow FiO2 Time Delivery Rate 01/23/19 97.7 69 17 135/87 96 08:00 (103) 01/21/19 Room Air 14:00 01/21/19 3.0 11:13 Intake and Output 01/22/19 01/22/19 01/23/19 1515:00 23:00 07:00 IntakeIntake Total 600 ml 1279 ml 2119 ml OutputOutput Total 1950 ml 1600 ml BalanceBalance 600 ml -671 ml 519 ml Results Result Diagram: 01/23/19 0647 01/23/19 0647 Results 24hrs Laboratory Tests Test 01/23/19 06:47 White Blood Count 4.5 L Red Blood Count 3.90 L Hemoglobin 12.2 L Hematocrit 35.6 L Mean Corpuscular Volume 91.3 Mean Corpuscular Hemoglobin 31.3 Mean Corpuscular Hemoglobin Concent 34.3 Red Cell Distribution Width 12.0 Platelet Count 178 Mean Platelet Volume 10.7 H Immature Granulocytes % 0.400 Neutrophils % 62.7 Lymphocytes % 23.0 Monocytes % 11.5 H Eosinophils % 2.0 Basophils % 0.4 Nucleated Red Blood Cells % 0.0 Immature Granulocytes # 0.020 Neutrophils # 2.8 Lymphocytes # 1.0 Monocytes # 0.5 Eosinophils # 0.1 Basophils # 0.0 Nucleated Red Blood Cells # 0.0 Sodium Level 141 Potassium Level 4.1 Chloride Level 106 Carbon Dioxide Level 28 Anion Gap 7 Blood Urea Nitrogen 12 Creatinine 0.99 Est Glomerular Filtrat Rate mL/min > 60 Glucose Level 96 Calcium Level 8.8 Phosphorus Level 4.2 Magnesium Level 1.7 Medications Medication Current Medications IV Flush (NS 3 ml) 3 ml PER PROTOCOL IV ; Start 01/20/19 at 02:30 Ondansetron HCl (Zofran Inj) 4 mg Q6H PRN IV NAUSEA/VOMITING Last administered on 01/21/19at 16:53; Admin Dose 4 MG; Start 01/20/19 at 02:30 Acetaminophen (Tylenol Tab) 650 mg Q6H PRN PO .PAIN 1-3 OR TEMP; Start 01/20/19 at 02:30 Prochlorperazine (Compazine) 5 mg TID PRN PO nausea Last administered on 01/20/19at 11:02; Admin Dose 5 MG; Start 01/20/19 at 11:00 Methocarbamol (Robaxin) 500 mg TID PO Last administered on 01/23/19at 08:56; Admin Dose 500 MG; Start 01/20/19 at 13:00 Ketorolac Tromethamine (Toradol) 30 mg Q6H PRN IV PAIN LEVEL 1-3 Last administered on 01/23/19at 04:01; Admin Dose 30 MG; Start 01/20/19 at 11:00; Stop 01/23/19 at 10:59 Lorazepam (Ativan) 1 mg Q1H PRN IV ANXIETY; Start 01/20/19 at 13:30 Multivitamins 10 ml/Thiamine HCl 100 mg/Folic Acid 1 mg/Sodium Chloride 1,011.2 ml @ 125 mls/ hr DAILY@09 IVPB Last administered on 01/23/19 09:29; Admin Dose 125 MLS/HR; Start 01/20/19 at 15:00 Naloxone HCl (Narcan) 0.2 mg Q2M PRN IV .RESP RATE; Start 01/21/19 at 10:30 Acetaminophen/ Hydrocodone Bitart ([place] (5/325)) 1 tab Q4H PRN PO MODERATE PAIN LEVEL 4-6; Start 01/21/19 at 14:00 Acetaminophen/ Hydrocodone Bitart ([place] (5/325)) 2 tab Q4H PRN PO MODERATE PAIN LEVEL 4-6 Last administered on 01/23/19 08:33; Admin Dose 2 TAB; Start 01/21/19 at 14:00 Ascorbic Acid (Vitamin C) 500 mg DAILY PO Last administered on 01/23/19 08:56; Admin Dose 500 MG; Start 01/22/19 at 10:00 Enoxaparin Sodium (Lovenox) 40 mg DAILY SC Last administered on 01/23/19 08:57; Admin Dose 40 MG; Start 01/23/19 at 09:00 Thiamine HCl (Vitamin B1) 100 mg DAILY PO Last administered on 01/23/19 08:57; Admin Dose 100 MG; Start 01/23/19 at 09:00 Chlordiazepoxide (Librium) 25 mg TID PO Last administered on 01/23/19 08:56; Admin Dose 25 MG; Start 01/22/19 at 21:00 Hydromorphone HCl (Dilaudid) 1 mg Q3H PRN IV SEVERE PAIN LEVEL 7-10 Last adm inistered on 01/23/19 09:34; Admin Dose 1 MG; Start 01/23/19 at 03:00 MICHOACANO CONROY Jan 23, 2019 10:15
[2019-01-23] MEDS: oxyCODONE (CR) 10 MG TAB [oxyCONTIN] PO SCH ×2 (11:01→20:32)
[2019-01-23 14:00] VITALS: BP 121/78; PULSE 73; RESP 16
[2019-01-23] MEDS: morphine LIQ (20 MG/ML PO SYG) SL PRN ×3 (14:19→21:14)
--- NOTE | 2019-01-23 16:59 | CONS ---
Assessment/Plan Assessment/Plan Assessment/Plan (Daily) Left talus closed comminuted fracture LLE edema Pain in limb LLE Plan Continue with pain control appreciate pain management recommendations. Elevate left lower extremity and ice behind the knee. Dressings were changed and pin site care. Keep dressings clean dry and intact. Continue course of prophylactic IV abx. Patient will need to be placed on temporary disability and would benefit from SNF placement appreciate case management recommendations. Consultation Date/Type/Reason Admit Date/Time Jan 20, 2019 at 00:30 Initial Consult Date Date/Time of Note DATE: 01/23/19 TIME: 16:59 24 HR Interval Summary Free Text/Dictation No acute events overnight Exam/Review of Systems Exam Vitals Vital Signs Date Temp Pulse Resp B/P (MAP) Pulse Ox O2 O2 Flow FiO2 Time Delivery Rate 01/23/19 97.9 73 16 121/78 98 14:00 (92) 01/21/19 Room Air 14:00 01/21/19 3.0 11:13 Intake and Output 01/22/19 01/22/19 01/23/19 1515:00 23:00 07:00 IntakeIntake Total 600 ml 1279 ml 2119 ml OutputOutput Total 1950 ml 1600 ml BalanceBalance 600 ml -671 ml 519 ml Exam Left lower extremity external fixator in place and in alignment No sign of hardware failure or breaks Pin sites appear clean dry and intact There is non pitting edema appreciated to the left lateral ankle area Serosanguinous drainage noted to lateral midfoot pin site No proximal streaking, no foul odor, no purulence noted Results Result Diagram: 01/23/19 0647 01/23/19 0647 Results 24hrs Laboratory Tests Test 01/23/19 06:47 White Blood Count 4.5 L Red Blood Count 3.90 L Hemoglobin 12.2 L Hematocrit 35.6 L Mean Corpuscular Volume 91.3 Mean Corpuscular Hemoglobin 31.3 Mean Corpuscular Hemoglobin Concent 34.3 Red Cell Distribution Width 12.0 Platelet Count 178 Mean Platelet Volume 10.7 H Immature Granulocytes % 0.400 Neutrophils % 62.7 Lymphocytes % 23.0 Monocytes % 11.5 H Eosinophils % 2.0 Basophils % 0.4 Nucleated Red Blood Cells % 0.0 Immature Granulocytes # 0.020 Neutrophils # 2.8 Lymphocytes # 1.0 Monocytes # 0.5 Eosinophils # 0.1 Basophils # 0.0 Nucleated Red Blood Cells # 0.0 Sodium Level 141 Potassium Level 4.1 Chloride Level 106 Carbon Dioxide Level 28 Anion Gap 7 Blood Urea Nitrogen 12 Creatinine 0.99 Est Glomerular Filtrat Rate mL/min > 60 Glucose Level 96 Calcium Level 8.8 Phosphorus Level 4.2 Magnesium Level 1.7 Medications Medication Current Medications IV Flush (NS 3 ml) 3 ml PER PROTOCOL IV ; Start 01/20/19 at 02:30 Ondansetron HCl (Zofran Inj) 4 mg Q6H PRN IV NAUSEA/VOMITING Last administered on 01/21/19 16:53; Admin Dose 4 MG; Start 01/20/19 at 02:30 Acetaminophen (Tylenol Tab) 650 mg Q6H PRN PO .PAIN 1-3 OR TEMP; Start 01/20/19 at 02:30 Prochlorperazine (Compazine) 5 mg TID PRN PO nausea Last administered on 01/20/19 11:02; Admin Dose 5 MG; Start 01/20/19 at 11:00 Naloxone HCl (Narcan) 0.2 mg Q2M PRN IV .RESP RATE; Start 01/21/19 at 10:30 Ascorbic Acid (Vitamin C) 500 mg DAILY PO Last administered on 01/23/19 08:56; Admin Dose 500 MG; Start 01/22/19 at 10:00 Enoxaparin Sodium (Lovenox) 40 mg DAILY SC Last administered on 01/23/19 08:57; Admin Dose 40 MG; Start 01/23/19 at 09:00 Thiamine HCl (Vitamin B1) 100 mg DAILY PO Last administered on 01/23/19 08:57; Admin Dose 100 MG; Start 01/23/19 at 09:00 Chlordiazepoxide (Librium) 25 mg TID PO Last administered on 01/23/19 12:53; Admin Dose 25 MG; Start 01/22/19 at 21:00 Lorazepam (Ativan) 1 mg Q4H PRN IV ANXIETY; Start 01/23/19 at 10:00 Oxycodone HCl (Oxycontin) 10 mg BID PO Last administered on 01/23/19 11:01; Admin Dose 10 MG; Start 01/23/19 at 10:00 Morphine Sulfate (Roxanol) 5 mg Q3H PRN SL SEVERE PAIN LEVEL 7-10 Last administered on 01/23/19at 14:19; Admin Dose 5 MG; Start 01/23/19 at 10:00 HEAVENLY CH DPM Jan 23, 2019 16:59
[2019-01-23 19:40] VITALS: BP 141/88; PULSE 89; RESP 18
[2019-01-23] MEDS: CEFAZOLIN 1 GM/50 ML (PMX) 50 ML IVPB SCH (20:32)
[2019-01-23] MEDS ORDERED: morphine 2 MG INJ IV STA (23:39)
[2019-01-24 01:52] VITALS: BP 129/74; PULSE 81; RESP 17
[2019-01-24] MEDS: morphine LIQ (20 MG/ML PO SYG) SL PRN ×4 (03:56→19:09)
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
[2019-01-24 08:22] VITALS: BP 122/79; PULSE 72; RESP 18
[2019-01-24] MEDS: ENOXAPARIN 40 MG/0.4 ML SYG SC SCH ×3 (08:56→12:24)
[2019-01-24] MEDS: CHLORDIAZEPOXIDE 25 MG CAP PO SCH (08:56)
[2019-01-24] MEDS: THIAMINE 100 MG TAB PO SCH (08:56)
[2019-01-24] MEDS: ASCORBIC ACID 500 MG TAB PO SCH (08:56)
[2019-01-24] MEDS: oxyCODONE (CR) 10 MG TAB [oxyCONTIN] PO SCH ×2 (08:57→21:11)
[2019-01-24] MEDS: CEFAZOLIN 1 GM/50 ML (PMX) 50 ML IVPB SCH ×2 (08:57→21:11)
[2019-01-24] MEDS: CHLORDIAZEPOXIDE 5 MG CAP PO SCH ×2 (12:12→21:11)
--- NOTE | 2019-01-24 12:29 | CONS ---
Assessment/Plan Assessment/Plan Assessment/Plan (Daily) Left talus closed comminuted fracture LLE edema Pain in limb LLE Plan Continue with pain control appreciate pain management recommendations. Elevate left lower extremity and ice behind the knee. Dressings were changed and pin site care. Keep dressings clean dry and intact. Continue course of prophylactic IV abx. Patient will need to be placed on temporary disability and would benefit from SNF placement appreciate case management recommendations. Placement to a SNF may pose difficulty due to his age and insurance. Consultation Date/Type/Reason Admit Date/Time Jan 20, 2019 at 00:30 Initial Consult Date Date/Time of Note DATE: 01/24/19 TIME: 12:28 24 HR Interval Summary Free Text/Dictation Reported fever overnight. Patient complaining of pain. Exam/Review of Systems Exam Vitals Vital Signs Date Temp Pulse Resp B/P (MAP) Pulse Ox O2 O2 Flow FiO2 Time Delivery Rate 01/24/19 98.1 72 18 122/79 98 Room Air 08:22 (93) 01/21/19 3.0 11:13 Intake and Output 01/23/19 01/23/19 01/24/19 1515:00 23:00 07:00 IntakeIntake Total 2000 ml 1238 ml 480 ml OutputOutput Total 1400 ml 600 ml BalanceBalance 600 ml 638 ml 480 ml Exam Left lower extremity external fixator in place and in alignment No sign of hardware failure or breaks Pin sites appear clean dry and intact There is non pitting edema appreciated to the left lateral ankle area Serosanguinous drainage noted to lateral midfoot pin site. No surrounding erythema, no purulence appreciated. No proximal streaking, no foul odor, no purulence noted Results Result Diagram: 01/23/19 0647 01/23/19 0647 Medications Medication Current Medications IV Flush (NS 3 ml) 3 ml PER PROTOCOL IV ; Start 01/20/19 at 02:30 Ondansetron HCl (Zofran Inj) 4 mg Q6H PRN IV NAUSEA/VOMITING Last administered on 01/21/19at 16:53; Admin Dose 4 MG; Start 01/20/19 at 02:30 Acetaminophen (Tylenol Tab) 650 mg Q6H PRN PO .PAIN 1-3 OR TEMP; Start 01/20/19 at 02:30 Prochlorperazine (Compazine) 5 mg TID PRN PO nausea Last administered on 01/20/19 11:02; Admin Dose 5 MG; Start 01/20/19 at 11:00 Naloxone HCl (Narcan) 0.2 mg Q2M PRN IV .RESP RATE; Start 01/21/19 at 10:30 Ascorbic Acid (Vitamin C) 500 mg DAILY PO Last administered on 01/24/19 08:56; Admin Dose 500 MG; Start 01/22/19 at 10:00 Enoxaparin Sodium (Lovenox) 40 mg DAILY SC Last administered on 01/24/19 12:24; Admin Dose 40 MG; Start 01/23/19 at 09:00 Thiamine HCl (Vitamin B1) 100 mg DAILY PO Last administered on 01/24/19 08:56; Admin Dose 100 MG; Start 01/23/19 at 09:00 Lorazepam (Ativan) 1 mg Q4H PRN IV ANXIETY Last administered on 01/24/19 12:20; Admin Dose 1 MG; Start 01/23/19 at 10:00 Oxycodone HCl (Oxycontin) 10 mg BID PO Last administered on 01/24/19 08:57; A dmin Dose 10 MG; Start 01/23/19 at 10:00 Morphine Sulfate (Roxanol) 5 mg Q3H PRN SL SEVERE PAIN LEVEL 7-10 Last administered on 01/24/19 12:12; Admin Dose 5 MG; Start 01/23/19 at 10:00 Cefazolin Sodium 50 ml @ 100 mls/hr Q12 IVPB Last administered on 01/24/19 08:57; Admin Dose 100 MLS/HR; Start 01/23/19 at 21:00; Stop 01/27/19 at 20:59 Chlordiazepoxide (Librium) 10 mg TID PO Last administered on 01/24/19 12:12; Admin Dose 10 MG; Start 01/24/19 at 13:00 HEAVENLY CH DPM Jan 24, 2019 12:29
[2019-01-24 13:52] VITALS: BP 115/66; PULSE 72; RESP 18
[2019-01-24 19:47] VITALS: BP 121/70; PULSE 78; RESP 18
[2019-01-25 02:10] VITALS: BP 97/56; PULSE 58; RESP 17
[2019-01-25] MEDS: morphine LIQ (20 MG/ML PO SYG) SL PRN ×6 (02:45→22:31)
[2019-01-25] MEDS: ONDANSETRON 4 MG INJ IV PRN (02:48)
[2019-01-25] MEDS: POLYETHYLENE GLYCOL 17 GM PACKET PO SCH (03:22)
[2019-01-25] MEDS: DOCUSATE SODIUM 100 MG CAP PO SCH ×2 (03:22→21:08)
[2019-01-25 07:45] VITALS: BP 125/73; PULSE 68; RESP 19
[2019-01-25] MEDS: ENOXAPARIN 40 MG/0.4 ML SYG SC SCH (09:00)
--- NOTE | 2019-01-25 09:02 | CONS ---
Assessment/Plan Assessment/Plan Assessment/Plan (Daily) postdated note for visit January 24, 2019 I have spoken with staff patient continues ask for higher doses of pain control medications. He has a past medical history of opioid and cocaine and methamphetamine abuse. This is a major contraindication to increasing his opioids and especially sending him home on any controlled substances. I've explained this to him prior. Consultation Date/Type/Reason Admit Date/Time Jan 20, 2019 at 00:30 Date/Time of Note DATE: 01/25/19 TIME: 09:01 Past Medical History Medical History: no pertinent history Home Meds Active Scripts Ibuprofen* (Motrin*) 600 Mg Tab, 600 MG PO Q6H PRN for PAIN AND/OR INFLAMMATION, #30 TAB Prov:DAVID FRANCIS MD 07/30/18 Ibuprofen* (Motrin*) 400 Mg Tab, 400 MG PO Q8, #15 TAB Prov:CLAY XIAO MD 07/24/18 Medications Current Medications IV Flush (NS 3 ml) 3 ml PER PROTOCOL IV ; Start 01/20/19 at 02:30 Ondansetron HCl (Zofran Inj) 4 mg Q6H PRN IV NAUSEA/VOMITING Last administered on 01/25/19at 02:48; Admin Dose 4 MG; Start 01/20/19 at 02:30 Acetaminophen (Tylenol Tab) 650 mg Q6H PRN PO .PAIN 1-3 OR TEMP; Start 01/20/19 at 02:30 Prochlorperazine (Compazine) 5 mg TID PRN PO nausea Last administered on 01/20/19at 11:02; Admin Dose 5 MG; Start 01/20/19 at 11:00 Naloxone HCl (Narcan) 0.2 mg Q2M PRN IV .RESP RATE; Start 01/21/19 at 10:30 Ascorbic Acid (Vitamin C) 500 mg DAILY PO Last administered on 01/24/19at 08:56; Admin Dose 500 MG; Start 01/22/19 at 10:00 Enoxaparin Sodium (Lovenox) 40 mg DAILY SC Last administered on 01/24/19at 12:24; Admin Dose 40 MG; Start 01/23/19 at 09:00 Thiamine HCl (Vitamin B1) 100 mg DAILY PO Last administered on 01/24/19at 08:56; Admin Dose 100 MG; Start 01/23/19 at 09:00 Lorazepam (Ativan) 1 mg Q4H PRN IV ANXIETY Last administered on 01/24/19 12:20; Admin Dose 1 MG; Start 01/23/19 at 10:00 Oxycodone HCl (Oxycontin) 10 mg BID PO Last administered on 01/24/19 21:11; Admin Dose 10 MG; Start 01/23/19 at 10:00 Morphine Sulfate (Roxanol) 5 mg Q3H PRN SL SEVERE PAIN LEVEL 7-10 Last administered on 01/25/19at 06:41; Admin Dose 5 MG; Start 01/23/19 at 10:00 Cefazolin Sodium 50 ml @ 100 mls/hr Q12 IVPB Last administered on 01/24/19 21:11; Admin Dose 100 MLS/HR; Start 01/23/19 at 21:00; Stop 01/27/19 at 20:59 Chlordiazepoxide (Librium) 10 mg TID PO Last administered on 01/24/19 21:11; Admin Dose 10 MG; Start 01/24/19 at 13:00 Docusate Sodium (Colace) 100 mg BID PO Last administered on 01/25/19 03:22; Admin Dose 100 MG; Start 01/25/19 at 03:30 Polyethylene Glycol (Miralax) 17 gm DAILY PO Last administered on 01/25/19 03:22; Admin Dose 17 GM; Start 01/25/19 at 03:30 Allergies: Coded Allergies: Penicillins (Verified Allergy, Intermediate, UNKNOWN, 07/30/18) Past Surgical History Past Surgical Hx: other (Unknown patient is a poor historian) Social History Alcohol Use: other Smoking Status: Current some day smoker Drug Use: marijuana, other ( past medical history of cocaine and methamphetamine) Exam/Review of Systems Exam Vitals Vital Signs Date Temp Pulse Resp B/P (MAP) Pulse Ox O2 O2 Flow FiO2 Time Delivery Rate 01/25/19 98.4 68 19 125/73 96 Room Air 07:45 (90) 01/21/19 3.0 11:13 Intake and Output 01/24/19 01/24/19 01/25/19 1515:00 23:00 07:00 IntakeIntake Total 870 ml 470 ml OutputOutput Total 1650 ml 450 ml BalanceBalance -780 ml 20 ml Results Result Diagram: 8/6/19 0647 01/23/19 0647 Medications Medication Current Medications IV Flush (NS 3 ml) 3 ml PER PROTOCOL IV ; Start 01/20/19 at 02:30 Ondansetron HCl (Zofran Inj) 4 mg Q6H PRN IV NAUSEA/VOMITING Last administered on 01/25/19 02:48; Admin Dose 4 MG; Start 01/20/19 at 02:30 Acetaminophen (Tylenol Tab) 650 mg Q6H PRN PO .PAIN 1-3 OR TEMP; Start 01/20/19 at 02:30 Prochlorperazine (Compazine) 5 mg TID PRN PO nausea Last administered on 01/20/19 11:02; Admin Dose 5 MG; Start 01/20/19 at 11:00 Naloxone HCl (Narcan) 0.2 mg Q2M PRN IV .RESP RATE; Start 01/21/19 at 10:30 Ascorbic Acid (Vitamin C) 500 mg DAILY PO Last administered on 01/24/19 08:56; Admin Dose 500 MG; Start 01/22/19 at 10:00 Enoxaparin Sodium (Lovenox) 40 mg DAILY SC Last administered on 01/24/19 12:24; Admin Dose 40 MG; Start 01/23/19 at 09:00 Thiamine HCl (Vitamin B1) 100 mg DAILY PO Last administered on 01/24/19 08:56; Admin Dose 100 MG; Start 01/23/19 at 09:00 Lorazepam (Ativan) 1 mg Q4H PRN IV ANXIETY Last administered on 01/24/19 12:20; Admin Dose 1 MG; Start 01/23/19 at 10:00 Oxycodone HCl (Oxycontin) 10 mg BID PO Last administered on 01/24/19 21:11; Admin Dose 10 MG; Start 01/23/19 at 10:00 Morphine Sulfate (Roxanol) 5 mg Q3H PRN SL SEVERE PAIN LEVEL 7-10 Last administered on 01/25/19 06:41; Admin Dose 5 MG; Start 01/23/19 at 10:00 Cefazolin Sodium 50 ml @ 100 mls/hr Q12 IVPB Last administered on 01/24/19 21:11; Admin Dose 100 MLS/HR; Start 01/23/19 at 21:00; Stop 01/27/19 at 20:59 Chlordiazepoxide (Librium) 10 mg TID PO Last administered on 01/24/19at 21:11; Admin Dose 10 MG; Start 01/24/19 at 13:00 Docusate Sodium (Colace) 100 mg BID PO Last administered on 01/25/19 03:22; Admin Dose 100 MG; Start 01/25/19 at 03:30 Polyethylene Glycol (Miralax) 17 gm DAILY PO Last administered on 01/25/19at 03:22; Admin Dose 17 GM; Start 01/25/19 at 03:30 MICHOACANO CONROY Jan 25, 2019 09:02
[2019-01-25] MEDS: CEFAZOLIN 1 GM/50 ML (PMX) 50 ML IVPB SCH (09:03)
[2019-01-25] MEDS: THIAMINE 100 MG TAB PO SCH (09:03)
[2019-01-25] MEDS: ASCORBIC ACID 500 MG TAB PO SCH (09:04)
[2019-01-25] MEDS: CHLORDIAZEPOXIDE 5 MG CAP PO SCH (09:04)
[2019-01-25] MEDS: oxyCODONE (CR) 10 MG TAB [oxyCONTIN] PO SCH ×2 (09:04→21:08)
--- NOTE | 2019-01-25 12:38 | CONS ---
Assessment/Plan Assessment/Plan Assessment/Plan (Daily) Left talus closed comminuted fracture LLE edema Pain in limb LLE Plan Continue with pain control appreciate pain management recommendations. Elevate left lower extremity and ice behind the knee. Dressings were kept intact. Patient was seen asleep and discussed with nursing staff for possible local anesthesia injection to assist with pain control. Disability paper work completed. Continue course of prophylactic IV abx. Patient would benefit from SNF placement appreciate case management recommendations. Placement to a SNF may pose difficulty due to his age and insurance. Patient has refused physical therapy and there is concerns for the patient vaping in his room. Security was called and patient refused a search in his room. Continue to monitor and remain non weight bearing to the left lower extremity. DVT scan negative Consultation Date/Type/Reason Admit Date/Time Jan 20, 2019 at 00:30 Initial Consult Date Date/Time of Note DATE: 01/25/19 TIME: 12:37 24 HR Interval Summary Free Text/Dictation Per nursing there is concerns that patient may be vaping in his room. Patient has also refused physical therapy. Patient is currently asleep without distress. Exam/Review of Systems Exam Vitals Vital Signs Date Temp Pulse Resp B/P (MAP) Pulse Ox O2 O2 Flow FiO2 Time Delivery Rate 01/25/19 98.4 68 19 125/73 96 Room Air 07:45 (90) 01/21/19 3.0 11:13 Intake and Output 01/24/19 01/24/19 01/25/19 1515:00 23:00 07:00 IntakeIntake Total 870 ml 470 ml OutputOutput Total 1650 ml 450 ml BalanceBalance -780 ml 20 ml Exam Left lower extremity external fixator in place and in alignment No sign of hardware failure or breaks No signs of strikethrough drainage No proximal streaking, no foul odor, no purulence noted Results Result Diagram: 01/23/19 0647 01/23/19 0647 Medications Medication Current Medications IV Flush (NS 3 ml) 3 ml PER PROTOCOL IV ; Start 01/20/19 at 02:30 Ondansetron HCl (Zofran Inj) 4 mg Q6H PRN IV NAUSEA/VOMITING Last administered on 01/25/19at 02:48; Admin Dose 4 MG; Start 01/20/19 at 02:30 Acetaminophen (Tylenol Tab) 650 mg Q6H PRN PO .PAIN 1-3 OR TEMP; Start 01/20/19 at 02:30 Prochlorperazine (Compazine) 5 mg TID PRN PO nausea Last administered on 01/20/19 11:02; Admin Dose 5 MG; Start 01/20/19 at 11:00 Naloxone HCl (Narcan) 0.2 mg Q2M PRN IV .RESP RATE; Start 01/21/19 at 10:30 Ascorbic Acid (Vitamin C) 500 mg DAILY PO Last administered on 01/25/19 09:04; Admin Dose 500 MG; Start 01/22/19 at 10:00 Enoxaparin Sodium (Lovenox) 40 mg DAILY SC Last administered on 01/24/19 12:24; Admin Dose 40 MG; Start 01/23/19 at 09:00 Thiamine HCl (Vitamin B1) 100 mg DAILY PO Last administered on 01/25/19 09:03; Admin Dose 100 MG; Start 01/23/19 at 09:00 Lorazepam (Ativan) 1 mg Q4H PRN IV ANXIETY Last administered on 01/24/19 12:20; Admin Dose 1 MG; Start 01/23/19 at 10:00 Oxycodone HCl (Oxycontin) 10 mg BID PO Last administered on 01/25/19 09:04; Admin Dose 10 MG; Start 01/23/19 at 10:00 Morphine Sulfate (Roxanol) 5 mg Q3H PRN SL SEVERE PAIN LEVEL 7-10 Last administered on 01/25/19 10:15; Admin Dose 5 MG; Start 01/23/19 at 10:00 Docusate Sodium (Colace) 100 mg BID PO Last administered on 01/25/19 03:22; Admin Dose 100 MG; Start 01/25/19 at 03:30 Polyethylene Glycol (Miralax) 17 gm DAILY PO Last administered on 01/25/19 03:22; Admin Dose 17 GM; Start 01/25/19 at 03:30 Cephalexin (Keflex) 500 mg Q8 PO ; Start 01/25/19 at 14:00 HEAVENLY CH DPM Jan 25, 2019 12:38
[2019-01-25] MEDS ORDERED: BUPIVACAINE 0.5% (MPF) 10 ML VIAL INJ ONE (13:00)
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
[2019-01-25 14:41] VITALS: BP 101/57; PULSE 65; RESP 19
[2019-01-25] MEDS: CEPHALEXIN 500 MG CAP PO SCH ×2 (15:00→22:26)
[2019-01-25 19:52] VITALS: BP 111/59; PULSE 77; RESP 18
[2019-01-26] MEDS: morphine LIQ (20 MG/ML PO SYG) SL PRN ×3 (01:37→08:29)
[2019-01-26 02:14] VITALS: BP 104/71; PULSE 62; RESP 18
[2019-01-26] MEDS: CEPHALEXIN 500 MG CAP PO SCH ×3 (05:05→22:16)
[2019-01-26 08:00] VITALS: BP 87/56; PULSE 66; RESP 16
[2019-01-26] MEDS: POLYETHYLENE GLYCOL 17 GM PACKET PO SCH (08:29)
[2019-01-26] MEDS: THIAMINE 100 MG TAB PO SCH (08:29)
[2019-01-26] MEDS: DOCUSATE SODIUM 100 MG CAP PO SCH ×2 (08:29→21:12)
[2019-01-26] MEDS: ASCORBIC ACID 500 MG TAB PO SCH (08:29)
[2019-01-26] MEDS: oxyCODONE (CR) 10 MG TAB [oxyCONTIN] PO SCH ×2 (08:29→21:13)
[2019-01-26] MEDS: ENOXAPARIN 40 MG/0.4 ML SYG SC SCH (08:31)
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
[2019-01-26] MEDS ORDERED: MAGNESIUM CITRATE 300 ML BTL PO ONE (13:00)
[2019-01-26 14:00] VITALS: BP 104/58; PULSE 69; RESP 16
[2019-01-26] MEDS: KETOROLAC 30 MG INJ IV PRN ×2 (14:13→20:21)
--- NOTE | 2019-01-26 16:07 | CONS ---
Assessment/Plan Assessment/Plan Assessment/Plan (Daily) Left talus closed comminuted fracture LLE edema Pain in limb LLE Plan Continue with pain control appreciate pain management recommendations. Elevate left lower extremity and ice behind the knee. Dressings were kept intact. Continue course of prophylactic IV abx. Patient would benefit from SNF placement appreciate case management recommendations. Placement to a SNF may pose difficulty due to his age and insurance. If unable to obtain SNF placement patient would benefit from home health and home physical therapy. Continue to monitor and remain non weight bearing to the left lower extremity. DVT scan negative Consultation Date/Type/Reason Admit Date/Time Jan 20, 2019 at 00:30 Initial Consult Date Date/Time of Note DATE: 01/26/19 TIME: 16:06 24 HR Interval Summary Free Text/Dictation No acute events overnight Exam/Review of Systems Exam Vitals Vital Signs Date Temp Pulse Resp B/P (MAP) Pulse Ox O2 O2 Flow FiO2 Time Delivery Rate 01/26/19 98.9 69 16 104/58 97 14:00 (73) 01/26/19 Room Air 02:14 Intake and Output 01/25/19 01/25/19 01/26/19 1515:00 23:00 07:00 IntakeIntake Total 710 ml 240 ml 200 ml OutputOutput Total 800 ml 600 ml 650 ml BalanceBalance -90 ml -360 ml -450 ml Exam Left lower extremity external fixator in place and in alignment No sign of hardware failure or breaks No signs of strikethrough drainage No proximal streaking, no foul odor, no purulence noted Results Result Diagram: 01/23/19 0647 01/23/19 0647 Medications Medication Current Medications IV Flush (NS 3 ml) 3 ml PER PROTOCOL IV ; Start 01/20/19 at 02:30 Ondansetron HCl (Zofran Inj) 4 mg Q6H PRN IV NAUSEA/VOMITING Last administered on 01/25/19at 02:48; Admin Dose 4 MG; Start 01/20/19 at 02:30 Acetaminophen (Tylenol Tab) 650 mg Q6H PRN PO .PAIN 1-3 OR TEMP; Start 01/20/19 at 02:30 Prochlorperazine (Compazine) 5 mg TID PRN PO nausea Last administered on 01/20/19at 11:02; Admin Dose 5 MG; Start 01/20/19 at 11:00 Naloxone HCl (Narcan) 0.2 mg Q2M PRN IV .RESP RATE; Start 01/21/19 at 10:30 Ascorbic Acid (Vitamin C) 500 mg DAILY PO Last administered on 01/26/19 08:29; Admin Dose 500 MG; Start 01/22/19 at 10:00 Enoxaparin Sodium (Lovenox) 40 mg DAILY SC Last administered on 01/26/19 08:31; Admin Dose 40 MG; Start 01/23/19 at 09:00 Thiamine HCl (Vitamin B1) 100 mg DAILY PO Last administered on 01/26/19 08:29; Admin Dose 100 MG; Start 01/23/19 at 09:00 Lorazepam (Ativan) 1 mg Q4H PRN IV ANXIETY Last administered on 01/24/19 12:20; Admin Dose 1 MG; Start 01/23/19 at 10:00 Oxycodone HCl (Oxycontin) 10 mg BID PO Last administered on 01/26/19 08:29; Admin Dose 10 MG; Start 01/23/19 at 10:00 Docusate Sodium (Colace) 100 mg BID PO Last administered on 01/26/19 08:29; A dmin Dose 100 MG; Start 01/25/19 at 03:30 Polyethylene Glycol (Miralax) 17 gm DAILY PO Last administered on 01/26/19 08:29; Admin Dose 17 GM; Start 01/25/19 at 03:30 Cephalexin (Keflex) 500 mg Q8 PO Last administered on 01/26/19 14:06; Admin Dose 500 MG; Start 01/25/19 at 14:00 Ketorolac Tromethamine (Toradol) 30 mg Q6H PRN IV PAIN LEVEL 1-3 Last administered on 01/26/19 14:13; Admin Dose 30 MG; Start 01/26/19 at 10:00; Stop 01/29/19 at 09:59 HEAVENLY CH DPM Jan 26, 2019 16:07
[2019-01-26 20:25] VITALS: BP 101/59; PULSE 76; RESP 18
[2019-01-27 02:20] VITALS: BP 106/58; PULSE 59; RESP 18
[2019-01-27] MEDS: KETOROLAC 30 MG INJ IV PRN ×3 (03:25→18:37)
[2019-01-27] MEDS: CEPHALEXIN 500 MG CAP PO SCH ×3 (06:44→22:02)
[2019-01-27] MEDS: POLYETHYLENE GLYCOL 17 GM PACKET PO SCH (09:00)
[2019-01-27] MEDS: THIAMINE 100 MG TAB PO SCH (09:48)
[2019-01-27] MEDS: oxyCODONE (CR) 10 MG TAB [oxyCONTIN] PO SCH ×2 (09:48→20:25)
[2019-01-27] MEDS: DOCUSATE SODIUM 100 MG CAP PO SCH ×2 (09:48→20:25)
[2019-01-27] MEDS: ASCORBIC ACID 500 MG TAB PO SCH (09:48)
[2019-01-27] MEDS: ENOXAPARIN 40 MG/0.4 ML SYG SC SCH (09:55)
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
[2019-01-27 20:00] VITALS: BP 105/59; RESP 17
[2019-01-28] MEDS: KETOROLAC 30 MG INJ IV PRN ×3 (00:38→15:28)
[2019-01-28] MEDS: CEPHALEXIN 500 MG CAP PO SCH ×3 (06:11→21:13)
[2019-01-28 07:31] VITALS: BP 110/65; PULSE 52; RESP 19
[2019-01-28] MEDS: POLYETHYLENE GLYCOL 17 GM PACKET PO SCH (09:00)
[2019-01-28] MEDS: oxyCODONE (CR) 10 MG TAB [oxyCONTIN] PO SCH ×2 (09:27→21:13)
[2019-01-28] MEDS: THIAMINE 100 MG TAB PO SCH (09:27)
[2019-01-28] MEDS: ASCORBIC ACID 500 MG TAB PO SCH (09:27)
[2019-01-28] MEDS: DOCUSATE SODIUM 100 MG CAP PO SCH ×2 (09:27→21:13)
[2019-01-28] MEDS: ENOXAPARIN 40 MG/0.4 ML SYG SC SCH (09:29)
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
[2019-01-28 14:16] VITALS: BP 96/51; PULSE 59; RESP 18
[2019-01-28 20:00] VITALS: BP 108/56; PULSE 55; RESP 17
[2019-01-29] MEDS: KETOROLAC 30 MG INJ IV PRN (01:30)
[2019-01-29 02:00] VITALS: BP 116/17; PULSE 58; RESP 18
[2019-01-29] MEDS: CEPHALEXIN 500 MG CAP PO SCH ×2 (06:04→15:25)
[2019-01-29 08:18] VITALS: BP 110/65; PULSE 55; RESP 16
[2019-01-29] MEDS: DOCUSATE SODIUM 100 MG CAP PO SCH (08:22)
[2019-01-29] MEDS: THIAMINE 100 MG TAB PO SCH (08:22)
[2019-01-29] MEDS: POLYETHYLENE GLYCOL 17 GM PACKET PO SCH (08:22)
[2019-01-29] MEDS: ASCORBIC ACID 500 MG TAB PO SCH (08:22)
[2019-01-29] MEDS: oxyCODONE (CR) 10 MG TAB [oxyCONTIN] PO SCH (08:23)
[2019-01-29] MEDS: ENOXAPARIN 40 MG/0.4 ML SYG SC SCH (08:23)
--- NOTE | 2019-01-29 09:56 | PDOCDIS ---
Discharge Instructions DIAGNOSIS Discharge Diagnosis 1. Left talus closed comminuted fracture. 2. Alcohol intoxication. 3. Polysubstance abuse. CONDITION [id number] Patient Condition: [id number] Stable HOME CARE INSTRUCTIONS: [id number] Diet Instructions: [id number] Regular FOLLOW UP/APPOINTMENTS Follow-up Plan Follow up with Dr. Nathan Sanchez in one week Office Address [id number] [place] [address] [address] [place] [address] Office NIKKIE HUIZAR NP Jan 29, 2019 09:56
[2019-01-29 14:00] VITALS: BP 105/60; PULSE 58; RESP 16
--- NOTE | 2019-01-29 20:10 | PN ---
DATE: 01/29/2019 SUBJECTIVE: The patient is status post closed reduction of comminuted talus fracture with applicatio n of multiplane external fixator. The patient is in no acute distress. He states his pain is decrea sed. OBJECTIVE: VITAL SIGNS: Temperature is 98.1, pulse is 58, respiratory rate is 16, blood pressure 105/60, pulse ox is 98%. GENERAL: Alert, oriented, in wheelchair. No signs of active drainage. Frame is stable alignment, i s acceptable. The patient is pending discharge ultrasound. Venous ultrasound is negative for deep vein thrombosis. ASSESSMENT: 1. Talus fracture, comminuted, status post closed reduction and application of multiplane external f ixator. 2. Left lower extremity edema. PLAN: Continue nonweightbearing to the left foot, pending discharge. Given age and insurance, he is not a candidate for SNF placement. The patient is instructed to follow up as outpatient. Strict no nweightbearing. Avoid further self-injury. Dictated By: ELIJAH DAY DPM RB/MAXWELL Conf#: [id number] DID#: [id number] CC: FAY GARCIA MD; MICHOACANO CONROY MD;*EndCC*
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
== END 2019-01-29 17:12 | disposition home health service (06) | DRG 505 ==
LOC: E/R 18:55 → PP2 01-20 00:30
PROVIDERS: ADMIT Internal Medicine; ATTEND Internal Medicine
PROC: 0QSM35Z Reposition Left Tarsal with External Fixation Device, Percutaneous Approach (ICD-10-PCS; principal; 2019-01-21 07:30)
DX: S92.102A Unspecified fracture of left talus, initial encounter for closed fracture (principal); F10.229 Alcohol dependence with intoxication, unspecified; W10.9XXA Fall (on) (from) unspecified stairs and steps, initial encounter
CPT/HCPCS: 36415; 70450; 71045; 72170; 73590; 73610; 73700; 80048; 80053; 80307; 83735; 84100; 85025; 85610; 85730; 93970; 96374; 96375; 96376; 97110; 97116; 97162; 97167; 97530; 97535; J0690; J1170; J1644; J1650; J1885; J2060; J2175; J2250; J2270; J2405; J2795; J3010; J3411; J7030; J7999

== ENCOUNTER 2019-02-05 20:43 | Emergency (ER) | payer MEDICAID ==
[~2019-02-05] VITALS: Ht 175.3 cm; Wt 69.1 kg
[~2019-02-05 20:43] MED LIST changes: +ACET1TAB40 PO; -IBUP-1561 PO
[2019-02-05 20:54] VITALS: Ht 175.3 cm; Wt 69.1 kg
[2019-02-05] MEDS ORDERED: HYDROCODONE/APAP (10/325) TAB PO ONE (21:30)
[2019-02-05 22:17] VITALS: BP 95/51; PULSE 60; RESP 16
== END 2019-02-05 22:18 | disposition home or self-care (01) ==
LOC: FTE 20:43
DX: S99.912D Unspecified injury of left ankle, subsequent encounter (principal); X58.XXXD Exposure to other specified factors, subsequent encounter
CPT/HCPCS: Z7502; Z7610; 99283

== ENCOUNTER 2019-03-13 13:10 | Emergency (ER) | payer MEDICAID ==
[~2019-03-13] VITALS: Ht 175.3 cm; Wt 68.2 kg
[~2019-03-13 13:10] MED LIST changes: +CLIN300C10 PO; -DOCU-144 PO; -HYDR-3980 PO; +HYDR-4011 PO; -NALO4SPR NS; -OXYC-279 PO
[2019-03-13 13:21] VITALS: BP 130/80; PULSE 98; RESP 20; Ht 175.3 cm; Wt 68.2 kg
== END 2019-03-13 16:55 | disposition left against medical advice (07) ==
LOC: FTE 13:10
DX: S89.92XA Unspecified injury of left lower leg, initial encounter (principal); W18.2XXA Fall in (into) shower or empty bathtub, initial encounter; Y92.9 Unspecified place or not applicable
CPT/HCPCS: 73590; 73610; 73630; Z7502